=== PATIENT | female | born 1985 | race Caucasian/White ===

== ENCOUNTER 2019-12-17 16:52 | Emergency (ER) | payer OTHER, SELFPAY ==
[2019-12-17 17:00] VITALS: BP 126/80; PULSE 98; RESP 16; TEMP 36.7; O2SAT 100
--- NOTE | 2019-12-17 17:30 | PC.NURSE ---
Pt has an area on right index finger that has muliple blisters clustered together with pain and swelling up into her hand. Pt also has pain radiating up to right armpit with some itching
--- NOTE | 2019-12-17 18:11 | ED.SKABFB ---
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 She says that she 1st noticed some slightly raised areas on the side of her index finger on Monday while she was at work, she was mixing chemicals, however she was not exposing herself to anything new and different than she usually does, she noticed that her finger was itchy and it continued to worsen over the next day then she started to notice a burning sensation traveling up the top of her hand and into her lower arm along the top of her arm. The day after that the burning sensation worsened then she noticed a little bit of redness and pain in the top of her hand and slight swelling this morning. The spot on her finger had changed in appearance and was no longer itchy she also notice it seemed like there was possibly a swollen lymph node on the front of her arm opposite her elbow. She has been feeling slightly tired the last couple of days, and just today she noticed that her arm feels a little bit tired and heavy when she moves it around. She has noticed heat, pain (some tenderness and a burning sensation) but denies, fever, chills, nausea, vomiting, diarrhea or any other symptoms. MD complaint: rash Onset (ago): day(s) (3) Tetanus up to date: unsure Location: R hand Severity: mild Severity scale (1-10): 2 Quality: burning and pruritic Pain Consistency: constant Relieving factors: none Exacerbating factors: none Context: none (She thinks she has experienced similar type of burning sensation in her arm before but she does not remember there being any kind of lesion on her finger with this happened, this was over a year ago and she did not go to the doctor.) Associated symptoms: other (Little tired the last few days) Related Data Previous Rx's Medication Instructions Recorded acyclovir 200 mg PO TID #21 cap MDD 600mg 12/17/19 amoxicillin-pot clavulanate 1 tab PO BID #10 tab 12/17/19 [Augmentin] Review of Systems <Aarti Guadalupe PA-C - Last Filed: 12/17/19 22:43> Review of Systems Narrative: GENERAL: Denies chills, fatigue, malaise, fever, sweats, has been feeling slightly tired the last couple days. HEENT: Denies sinus pain, ear pain, sore throat, difficulty swallowing, dizziness. RESPIRATORY: Denies dyspnea, cough, wheezing, hemoptysis, sputum. CARDIOVASCULAR: Denies chest pain, palpitations, orthopnea, edema, GASTROINTESTINAL: Denies nausea, vomiting, abdominal pain, diarrhea, constipation, melena. : Denies dysuria, frequency, incontinence, hematuria, urinary retention. MUSCULOSKELETAL: denies weakness, joint pain, or bony pain SKIN: Endorses a rash on the side of her index finger that began on Monday, endorses slight swelling of the top of her R hand. Denies any other skin lesions, or other NEUROLOGIC: Endorses a burning sensation in her forearm and the top of her hand. Denies weakness, headache, numbness, change in speech, confusion, seizures, incoordination. PSYCHIATRIC: No concerning psychosocial issues. 12 point review of systems is negative except for those stated above Patient History <Aarti Guadalupe PA-C - Last Filed: 12/17/19 22:43> Social History Smoking Status: Current every day smoker Smoking Status: Current every day smoker tobacco type: vaping alcohol intake frequency: 0-2 drinks per day Substance Use Type: does not use Exam <Aarti Guadalupe PA-C - Last Filed: 12/17/19 22:43> Narrative Exam Narrative: GENERAL: 34 year old patient appears stated age. Well-nourished, well-developed patient, in mild distress. HEAD: Atraumatic. Normocephalic. EYES: Pupils equal round and reactive. Extraocular motions intact. No scleral icterus. No injection or drainage. ENT: Nose without bleeding, purulent drainage. Throat without erythema, tonsillar hypertrophy or exudate. Airway patent. NECK: Trachea midline. Non tender CARDIOVASCULAR: Regular rate and rhythm without murmurs, gallops, or rubs. RESPIRATORY: Clear to auscultation. Breath sounds equal bilaterally. No wheezes, rales, or rhonchi. EXTREMITIES: There are multiple colorful tattoos covering the majority of her bilateral arms, making it difficult to assess skin color and condition. There are papular vesicular clustered 2 mm lesions that appear to have slightly purulent content and erythematous bases in an area approximately 1 cm x 2 cm on her medial right hand 2nd digit lateral to the PIP joint. They are slightly tender. There is slight erythema of the dorsum of her hand with associated tenderness and heat, there is slight heat of her posterior forearm as well. No edema or joint tenderness. Sensation is intact, sharp dull discrimination is intact, capillary refill is less than 2 seconds in all fingers. There is a small slightly tender palpable nodule likely an inflamed lymph node in the medial antecubital fossa in the right arm. Radial pulses are strong and equal bilaterally 2+ BACK: Nontender without deformity or crepitance. No flank tenderness. NEURO: AOx3. SKIN: See extremities. No rash or erythema of visible areas Initial Vital Signs Initial Vital Signs: Vital Signs Temperature 98.1 F 12/17/19 17:00 Pulse Rate 98 H 12/17/19 17:00 Respiratory Rate 16 12/17/19 17:00 Blood Pressure 126/80 12/17/19 17:00 Pulse Oximetry 100 12/17/19 17:00 <Anu Robledo MD - Last Filed: 12/17/19 23:14> Initial Vital Signs Initial Vital Signs: Vital Signs Temperature 98.1 F 12/17/19 17:00 Pulse Rate 98 H 12/17/19 17:00 Respiratory Rate 16 12/17/19 17:00 Blood Pressure 126/80 12/17/19 17:00 Pulse Oximetry 100 12/17/19 17:00 Course <Aarti Guadalupe PA-C - Last Filed: 12/17/19 22:43> Orders Ordered: ED Orders 12/17/19 18:25 Complete Blood Count AUTO DIFF Stat Vital Signs Vital signs: Vital Signs - 8 hr 12/17/19 17:00 Temperature 98.1 F Pulse Rate 98 H Respiratory Rate 16 Blood Pressure 126/80 Pulse Oximetry 100 <Anu Robledo MD - Last Filed: 12/17/19 23:14> Orders Ordered: ED Orders 12/17/19 18:25 Complete Blood Count AUTO DIFF Stat Vital Signs Vital signs: Vital Signs - 8 hr 12/17/19 17:00 Temperature 98.1 F Pulse Rate 98 H Respiratory Rate 16 Blood Pressure 126/80 Pulse Oximetry 100 MDM - Skin/Abscess/Foreign Bdy <Aarti Guadalupe PA-C - Last Filed: 12/17/19 22:43> Differential Diagnosis Differential diagnosis: Likely other (herpetic tracy, cellulitis) Medical Records Attestation: I reviewed the patient's medical records. Lab Data Attestation: I reviewed the patient's lab results. Result diagrams: 12/17/19 18:25 Labs: Lab Results 12/17/19 Range/Units 18:25 WBC 9.0 (4.5-11.0) X10^3/uL RBC 4.02 (4.0-5.2) X10^6/uL Hgb 12.3 (12.0-16.0) g/dL Hct 35.1 L (36-46) % MCV 87.2 (80-100) fL MCH 30.5 (26-34) PG MCHC 34.9 (30-36) % RDW 13.1 (11.6-14.8) % Plt Count 297 (150-400) X10^3/uL Neut % (Auto) 67.8 (50-75) % Lymph % (Auto) 20.0 L (25-40) % Spink % (Auto) 10.4 (3-14) % Eos % (Auto) 1.4 L (2-4) % Baso % (Auto) 0.4 (0-2) % Neut # (Auto) 6100 (3127-9186) /uL Lymph # (Auto) 1800 (1896-7865) /uL Spink # (Auto) 900 (0-900) /uL Eos # (Auto) 100 (0-450) /uL Baso # (Auto) 0 (0-100) /uL MDM Narrative Medical decision making narrative: 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 Differential diagnoses that were considered include herpetic tracy, zoster, DVT, cellulitis Most of her symptoms are consistent with herpetic tracy, and as she has had similar symptoms once before, she was prescribed acyclovir for this, as well as given instructions regarding wearing gloves while working and care of her hands. She did have heat, tenderness and mild erythema consistent with a possible cellulitis of the dorsum of her hand, and for this reason she was also prescribed antibiotics. The expected course of the Tracy was discussed, return precautions were provided, follow-up plan was discussed, and all questions were answered. Greater than 11 minutes was spent in counseling the patient. <Anu Robledo MD - Last Filed: 12/17/19 23:14> Lab Data Labs: Lab Results 12/17/19 Range/Units 18:25 WBC 9.0 (4.5-11.0) X10^3/uL RBC 4.02 (4.0-5.2) X10^6/uL Hgb 12.3 (12.0-16.0) g/dL Hct 35.1 L (36-46) % MCV 87.2 (80-100) fL MCH 30.5 (26-34) PG MCHC 34.9 (30-36) % RDW 13.1 (11.6-14.8) % Plt Count 297 (150-400) X10^3/uL Neut % (Auto) 67.8 (50-75) % Lymph % (Auto) 20.0 L (25-40) % Spink % (Auto) 10.4 (3-14) % Eos % (Auto) 1.4 L (2-4) % Baso % (Auto) 0.4 (0-2) % Neut # (Auto) 6100 (0240-7617) /uL Lymph # (Auto) 1800 (1614-2227) /uL Spink # (Auto) 900 (0-900) /uL Eos # (Auto) 100 (0-450) /uL Baso # (Auto) 0 (0-100) /uL Discharge Plan Departure Patient Disposition: Home Clinical Impression: Herpetic tracy, Cellulitis of dorsum of hand Discharge Date/Time: 12/17/19 18:58 Instructions: DI for Cellulitis -- Adult Activity Restrictions/Additional Instructions: Thank you for allowing us to be part of your care in the emergency department today. You appear to have what is called a herpetic tracy, this is a common problem that can occur with fingers and is a result of the common herpes virus HSV 1 or HSV 2 (such as the virus that causes cold sores). Usually these will heal by about 12 days after the initial lesion appeared on your finger, these ?vesicles may open up and it is possible that you could shed the virus if this happens, so I recommend wearing gloves when you are working with client as well as wearing gloves when you are preparing materials for your job as it is probably a good idea to protect your hands right now. Because it sounds like he may have had this previously and going to prescribe acyclovir for you this is an antiviral medication that will not necessarily take away all your symptoms but it should shorten the course of your Illness and it may reduce the chances of recurrence, most people that have this due to recurrence at some point, (20-50%). I have also prescribed Augmentin, which is an antibiotic because it is possible you also have a cellulitis based on the new swelling in her hand and the redness and heat. Both your prescriptions have been sent to the [facility] in [place] electronically. There is no evidence of an emergent or life threatening illness at this time, but follow up with your doctor in 1-2 days is recommended nonetheless to continue to rule out serious underlying causes of your symptoms. Please call the office for an appointment. Please return to the Emergency Department for any worsening or persistent symptoms. Please take medications as directed. Prescriptions: New acyclovir 200 mg capsule 200 mg PO TID MDD 600mg Qty: 21 RF: 0 amoxicillin-pot clavulanate [Augmentin] 875-125 mg tablet 1 tab PO BID Qty: 10 RF: 0 Referrals: [facility] [Outside] <Anu Robledo MD - Last Filed: 12/17/19 23:14> [facility] I was immediately available in the department for consultation throughout this patient's visit. I agree with documentation as above. Anu Robledo MD
[2019-12-17 18:31] LABS: Add Manual Diff / Slide Review NO; Basophils Absolute Auto 0 /uL (0-100); Basophils Percent Auto 0.4 % (0-2); Eosinophils Absolute Auto 100 /uL (0-450); Eosinophils Percent Auto 1.4 % (2-4); Hematocrit 35.1 % (36-46); Hemoglobin 12.3 g/dL (12.0-16.0); Lymphocytes Absolute Auto 1800 /uL (1100-4500); Mean Corpuscular HGB Conc 34.9 % (30-36); Mean Corpuscular Hemoglobin 30.5 PG (26-34); Mean Corpuscular Volume 87.2 fL (80-100); Monocytes Absolute Auto 900 /uL (0-900); Monocytes Percent Auto 10.4 % (3-14); Neutrophils Absolute Auto 6100 /uL (1500-7000); Neutrophils Percent Auto 67.8 % (50-75); Platelet Count 297 X10^3/uL (150-400); Red Blood Cell Count 4.02 X10^6/uL (4.0-5.2); Red Cell Distribution Width 13.1 % (11.6-14.8)
== END 2019-12-17 18:58 | disposition home or self-care (01) ==
PROVIDERS: Emergency Provider Student in an Organized Health Care Education/Training Program
DX: L03.113 Cellulitis of right upper limb (principal); B00.89 Other herpesviral infection
CPT/HCPCS: 36415; 85025; 99281; 99283

== ENCOUNTER 2020-12-18 13:53 | Emergency (ER) | payer OTHER, SELFPAY ==
[2020-12-18 14:05] VITALS: BP 119/85; PULSE 76; RESP 16; TEMP 36.8; O2SAT 98; BMI 32.3
--- NOTE | 2020-12-18 15:13 | ED_ITS ---
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 Initially started is painful clear vesicles on an erythematous base and now has a pus under the vesicles with erythema extending up her finger. She does not have other lymphangitic spread. She had a similar episode in December of 2019 and was treated with both acyclovir and Augmentin with success. The feeling at that time was that it was herpetic marcela with the cellulitis superinfection. As the location is on the same finger and essentially the same part of the finger, she has more questions regarding the possibility of marcela and how she might of choir that. She would like more confirmation so will do a viral swab has a vesicles or unroofed today. Related Data Previous Rx's Medication Instructions Recorded acyclovir 200 mg PO TID #21 cap MDD 600mg 12/17/19 amoxicillin-pot clavulanate 1 tab PO BID #10 tab 12/17/19 [Augmentin] amoxicillin-pot clavulanate 1 tab PO BID #14 tab 12/18/20 [Augmentin] fluconazole 150 mg PO Q3D #2 tab 12/18/20 valacyclovir 1,000 mg PO TID #15 tab 12/18/20 Allergies Allergy/AdvReac Type Severity Reaction Status Date / Time No Known Drug Allergies Allergy Verified 12/18/20 14:05 Review of Systems Review of Systems Narrative: Pertinent positive and negative findings as per HPI Remainder of review of systems is otherwise unremarkable for Constitutional: Fevers, chills, weakness ENT: No sore throat, neck pain, ear pain CV: Chest pain, palpitations, Respiratory: Cough, wheeze, dyspnea GI: Nausea, vomiting, diarrhea, : Dysuria, hematuria, Patient History Social History Smoking Status: Former smoker Smoking Status: Former smoker tobacco type: vaping alcohol intake frequency: a few times a week Substance Use Type: does not use Exam Narrative Exam Narrative: General: Alert appropriate in no acute distress Respiratory: Able to speak in full sentences, no obvious respiratory distress Skin: No obvious rashes, warm and dry Neurologic: Grossly intact no obvious asymmetries or abnormalities Psych: appropriate insight and affect, cooperative Extremity: Right index finger with 2 vesicles on an erythematous base on the medial aspect of the finger. Vesicles do have some purulence material underneath and the middle portion of the finger is becoming more swollen there is tenderness extending up the dorsum of the hand without obvious lymphadenitis. Initial Vital Signs Initial Vital Signs: Vital Signs Temperature 98.3 F 12/18/20 14:05 Pulse Rate 76 12/18/20 14:05 Respiratory Rate 16 12/18/20 14:05 Blood Pressure 119/85 12/18/20 14:05 Pulse Oximetry 98 12/18/20 14:05 Course Orders Ordered: Discontinued Medications Amoxicillin/Clavulanate Potassium (Amoxicillin/Clav 875/125 Mg) 1 tab PO NOW ONE Stop: 12/18/20 15:52 Last Admin: 12/18/20 16:03 Dose: 1 tab Documented by: Vital Signs Vital signs: Vital Signs - 8 hr 12/18/20 14:05 12/18/20 16:09 Temperature 98.3 F Pulse Rate 76 76 Respiratory Rate 16 16 Blood Pressure 119/85 135/88 Pulse Oximetry 98 100 MDM - Extremity (Nontraumatic) MDM Narrative Medical decision making narrative: 35-year-old woman with similar recurrence to a year ago strongly suggesting that this did start with herpetic with low. Using an 18 gauge needle to 2 vesicles were unroofed and viral cultures were obtained. There was purulence that returned. Because she tolerated Augmentin well with the last episode she is given this again. She is past the point where antiviral medications will be helpful however, presuming the viral culture returns positive I have given her a prescription for valacyclovir to have available should she notice another episode of blistering in the future. There is no evidence of sepsis or deep tissue infection at this time. She is safe for home discharge Discharge Plan Departure Patient Disposition: Home Clinical Impression: Herpetic marcela Cellulitis Qualifiers: Site of cellulitis: extremity Site of cellulitis of extremity: finger Laterality: right Qualified Code(s): L03.011 - Cellulitis of right finger Instructions: DI for Cellulitis -- Adult, DI for Cold Sores Activity Restrictions/Additional Instructions: Thank you for coming in today I do think that this is very likely herpetic marcela. This is from of herpes virus and typically recurs at the same spot on your fingers. I have given you instructions on cold sores, it is very similar to those. We did do a viral culture to confirm this completely. If that does not show herpes, then and this is simply a bacterial cellulitis. Please call back in about 4 days to follow- up on the culture results. If it is herpes, I would recommend filling the valacyclovir prescription and keeping it in the medicine cabinet to begin the 1st day that you notice any sort of blistering on that same finger in the future. In the meantime, there is also a bacterial super infection with cellulitis developing. Last year you responded nicely to Augmentin some simply going to repeat that. Prescriptions: New valacyclovir 1 gram tablet 1,000 mg PO TID Qty: 15 RF: 0 amoxicillin-pot clavulanate [Augmentin] 875-125 mg tablet 1 tab PO BID Qty: 14 RF: 0 fluconazole 150 mg tablet 150 mg PO Q3D Qty: 2 RF: 0 No Action acyclovir 200 mg capsule 200 mg PO TID MDD 600mg Qty: 21 RF: 0 amoxicillin-pot clavulanate [Augmentin] 875-125 mg tablet 1 tab PO BID Qty: 10 RF: 0
[2020-12-18] MEDS: AMOXICILLIN/CLAV 875/125 MG 1 TAB PO (16:03)
[2020-12-18 16:09] VITALS: BP 135/88; PULSE 76; RESP 16; O2SAT 100
--- NOTE | 2020-12-25 09:10 | PC.NURSE ---
Pt called for viral culture report, preliminary report negative. Encouraged to follow up with primary care provider. Reviewed that this was a preliminary report and if positive w/ final report she will get a phone call from the Ed per usual routine.
== END 2020-12-18 16:10 | disposition home or self-care (01) ==
PROVIDERS: Emergency Provider Emergency Medicine
DX: B00.89 Other herpesviral infection (principal)
CPT/HCPCS: 87252; 99283